=== PATIENT | male | born 1960 | race African-American/Black ===

== ENCOUNTER → 2017-03-01 | Outpatient (CLI) | payer BC ==
[~2017-03-01] MED LIST: MULTI-DAY VITAM1 TAB PO; OMEPRAZOLE40 MG PO
--- NOTE | ~2017-03-01 | ST ---
Unit #: [id number] #: [id number] Patient: YONATAN DUBON [id number] [address] [place], [place] [address] [id number] MR#: [id number] NAME: YONATAN DUBON : 1960 SEX: M STUDY DATE/TIME: 03/01/2017 UNIT: CN ROOM: STUDY DESCRIPTION: Attending Physician: Sarwat Roldan M.D. Referring Physician: Sarwat Roldan M.D. Primary Care Physician: No Primary Care Physician CARDIOLOGY REPORT EXAM EKG and nuclear portion. ORDERING PHYSICIAN Sarwat Roldan M.D. INDICATIONS Chest pain. SUMMARY Patient underwent Cardiolite exercise nuclear stress test. Patient exercised per Wayne protocol for 11 minutes and 15 seconds, achieving work level METs of 13.5. Patient's resting heart rate was 69 beats per minute which increased to 150 beats per minute representing 90% of the maximum age-predicted heart rate. The patient's resting blood pressure is 142/98 mmHg. Patient's peak blood pressure is 190/96 mmHg. Patient's resting ECG revealed normal sinus rhythm with normal ST segments. Patient's stress ECG shows sinus tachycardia with preserved ST segments. There is no ventricular, supraventricular ectopy noted. There are no pauses noted. CONCLUSION 1. Good exercise tolerance. 2. Negative ECG portion of the Cardiolite study for ischemia. 3. Normal blood pressure and heart rate response to exercise. 4. Perfusion imaging dictated below. PERFUSION PART The patient underwent nuclear stress test. Received a resting dose of 11.55 mCi and a stress dose of 34.8 mCi. On gated imaging, patient appears to have normal wall motion with a preserved ejection fraction. The patient's LV EF is 61%. On perfusion imaging comparing rest and stress images, there appears to be no reversible perfusion defects. CONCLUSION 1. No obvious ischemia. 2. Preserved ejection fraction. 3. ECG portion dictated above. Unit #: [id number] #: [id number] Patient: YONATAN DUBON Dictated by... Stephy Bolton/lynn TD: 03/02/2017 08:59 JOB #: [id number] CC: Sarwat Roldan M.D. CARDIOLOGY REPORT Page 1 of 1 X GIANA BERRY MD CARDIOLOGY REPORT
== END | disposition home or self-care (01) ==
LOC: CNUC 07:39
DX: R07.89 Other chest pain (principal)
CPT/HCPCS: 78452; 93017; A9500